=== PATIENT | male | born 1970 | race African-American/Black ===

== ENCOUNTER 2019-06-29 10:15 | Emergency (ER) | payer BC ==
--- NOTE | 2019-06-29 10:38 | RAD REPORT ---
EXAM DESCRIPTION: CT - Ct Stroke Brain Wo Cont - 06/29/2019 10:32 am CLINICAL HISTORY: Headache COMPARISON: None TECHNIQUE: Computed axial tomography of the head was obtained. All CT scans are performed using dose optimization technique as appropriate and may include automated exposure control or mA/KV adjustment according to patient size. FINDINGS: An intracranial bleed is not seen . The ventricles are normal in caliber. No extra-axial fluid collection is noted. Mild low-density areas within the deep white matter are nonspecific but may indicate mild ischemic ch anges secondary to mild small vessel disease Mild opacification the right ethmoid sinus. Mastoids are clear IMPRESSION: No acute intracranial abnormality is seen. If patient's symptoms persist MRI of the bra in would be recommended. Dr Flores of the emergency room was notified at 6:20 p.m. December 17, 2018
[2019-06-29 10:44] LABS: Absolute Lymphocytes (CBC) 1.4 K/uL (0.7-4.9); Basophils % 0.7 % (0-1.3); Hematocrit 43.7 % (39.6-49.0); Lymphocytes % 34.9 % (15.3-44.8); RBC Red Blood Cell Count 5.18 M/uL (4.33-5.43)
[2019-06-29 10:50] LABS: Protime INR 1.03
[2019-06-29 10:56] LABS: Potassium 4.1 mmol/L (3.5-5.1)
[2019-06-29] MEDS ORDERED: KETOROLAC 30 MG/ML INJ ONE (11:06)
[2019-06-29] MEDS ORDERED: DIPHENHYDRAMINE 50 MG/ML VIAL ONE (11:06)
[2019-06-29] MEDS ORDERED: NA CHLORIDE 0.9% 50 ML IV ONE (11:06)
[2019-06-29] MEDS ORDERED: METOCLOPRAMIDE 10 MG/2mL INJ ONE (11:06)
--- NOTE | 2019-06-29 11:14 | RAD REPORT ---
EXAM DESCRIPTION: RAD - Chest Single View - 06/29/2019 11:05 am CLINICAL HISTORY: PAIN Chest pain. COMPARISON: No comparisons FINDINGS: Portable technique limits examination quality. The lungs are grossly clear. The heart is normal in size. No displaced fractures. IMPRESSION: No acute intrathoracic process suspected.
--- NOTE | 2019-06-29 11:49 | RAD REPORT ---
EXAM DESCRIPTION: CT - Head angio - 06/29/2019 11:33 am CLINICAL HISTORY: code stroke Headache, drowsiness, CVA symptomology. COMPARISON: Ct Stroke Brain Wo Cont dated 06/29/2019 TECHNIQUE: CT angiography of the head was performed with MIPs. All CT scans are performed using dose optimization technique as appropriate and may include automated exposure control or mA/KV adjustment according to patient size. FINDINGS: No evidence of aneurysm is detected. No flow-limiting stenosis or vascular malformation id entified. Antegrade flow is seen in the vertebral arteries. The vertebral arteries are codominant. The visualized dural venous sinuses are patent. IMPRESSION: No significant flow abnormality is detected.
--- NOTE | 2019-06-29 14:00 | EKG ---
Test Date: 2019-06-29 Test Time: 10:32:26 Shredded [employer] Machine: JEANIE MEASUREMENT RESULTS: Intervals: Rate: 54 MS: 174 QRSD: 88 QT: 366 QTc: 347 [place]: P: 49 MS: 174 QRS: 92 T: 11 INTERPRETIVE STATEMENTS: Sinus bradycardia Rightward axis Nonspecific T wave abnormality Abnormal ECG No previous ECG available for comparison Electronically Signed On 06-29-19 13:59:04 CDT by Trent Colunga
--- NOTE | 2019-06-29 14:17 | ER ---
Nurse's Notes [facility] Name: Fabiano Kruger Age: 49 yrs Sex: Male : 1970 Arrival Date: 06/29/2019 Time: 10:16 Bed 2 Private MD: Unknown, Unknown Diagnosis: Headache;Migraine without aura;Migraine, unspecified Presentation: 06/29 10:19 Presenting complaint: Sudden onset blurry vision, headache, dizziness, and left arm hb numbness that started at 0845 today. Transition of care: patient was not received from another setting of care. Risk Assessment: Do you want to hurt yourself or someone else? Patient reports no desire to harm self or others. Initial Sepsis Screen: Does the patient meet any 2 criteria? No. Patient's initial sepsis screen is negative. Does the patient have a suspected source of infection? No. Patient's initial sepsis screen is negative. 10:19 Method Of Arrival: Wheelchair hb 10:19 Acuity: MARIBEL 2 hb 10:50 No acute neurological deficit is noted. Pre-hospital glucose is not applicable to this ph patient. Onset of symptoms was June 29, 2019 at 08:45. Care prior to arrival: None. Stroke Activation: Symptom onset < 3 hours Physician: Stroke Attending; Name: ; Notified At: ; Arrived At: Physician: Chief Stroke Resident; Name: ; Notified At: ; Arrived At: Physician: Stroke Resident; Name: ; Notified At: ; Arrived At: Physician: ED Attending; Name: ; Notified At: ; Arrived At: Physician: ED Resident; Name: ; Notified At: ; Arrived At: Historical: - Allergies: 10:22 No Known Allergies; hb - Home Meds: 10:22 losartan 50 mg oral tab [Active]; hb - PMHx: 10:22 heart attack; hb - Immunization history:: Adult Immunizations up to date. - Social history:: Smoking status: Patient/guardian denies using tobacco. - Ebola Screening: : No symptoms or risks identified at this time. Screenin:45 Abuse screen:. Nutritional screening: No deficits noted. Tuberculosis screening: No ph symptoms or risk factors identified. VAN Screening: Arm Drift: Patient shows no arm weakness. Patient is VAN negative. Patient has been NPO before screening. The patient is alert, able to follow commands. The patient does not exhibit slurred or garbled speech The patient is not exhibiting difficulty speaking. The patient does not exhibit difficulty understanding words. The patient is able to swallow own secretions with no drooling or need for suction. Patient tolerated one teaspoon of water. No drooling, immediate coughing, gurgling, or clearing of the throat was noted. The patient tolerated 90mL of water. No drooling, immediate coughing, gurgling, or clearing of the throat was noted. The patient passed the bedside swallow screening. Oral medications may be given as ordered. Contact Physician for further diet orders. Provider notified of bedside swallow screening results: Fabiano Flores MD. Fall Risk None identified. Assessment: 10:20 Reassessment: Patient appears in no apparent distress at this time. Pt taken to CVT via ph wheelchair by RODNEY Vigil. 10:35 Reassessment: Dr Flores at bedside to assess pt, pt reports hx of complex migraines ph that have caused similar symptoms in the past, last migraine 2013. 10:45 VAN Scoring: Arm Drift: Patients demonstrates NO arm weakness. Patient is VAN Negative. ph Patient has been NPO before screening. The patient is alert, and able to follow commands. The patient does not exhibit slurred or garbled speech. The patient is not exhibiting difficulty speaking. The patient does not exhibit difficulty understanding words. The patient is able to swallow own secretions with no drooling or need for suction. Patient tolerated one teaspoon of water. No drooling, immediate coughing, gurgling, or clearing of the throat was noted. The patient passed the bedside swallow screening. Oral medications may be given as ordered. Contact Physician for further diet orders. Provider notified of bedside swallow screening results: Gianna Berg RN. T-PA (Activase) Screening: Contraindications: Rapidly improving condition or minor deficit: Yes. General: Appears in no apparent distress. comfortable, slender, well groomed, Behavior is calm, cooperative, appropriate for age. Pain:. Neuro: Level of Consciousness is awake, alert, obeys commands, Oriented to person, place, time, situation, Clerk Of Court are equal bilaterally Moves all extremities. Full function Gait is steady, Speech is normal, Facial symmetry appears normal, Pupils are PERRLA, Intact Reports blurred vision HOSPICE CONSULTANT, now resolved\E\ dizziness, HOSPICE CONSULTANT, now resolved headache numbness in left arm Denies weakness difficulty swallowing. Cardiovascular: Reports lightheadedness, Denies chest pain, Rhythm is sinus bradycardia. Respiratory: Airway is patent Respiratory effort is even, unlabored, Respiratory pattern is regular, symmetrical. GI: Patient currently denies abdominal pain, nausea, vomiting. Derm: Skin is intact, is healthy with good turgor, Skin is pink, warm \T\ dry. Musculoskeletal: Circulation, motion, and sensation intact. Range of motion:. 12:00 Reassessment: Patient appears in no apparent distress at this time. Patient and/or ph family updated on plan of care and expected duration. Pain level reassessed. Patient is alert, oriented x 3, equal unlabored respirations, skin warm/dry/pink. 13:00 Reassessment: Patient appears in no apparent distress at this time. Patient and/or ph family updated on plan of care and expected duration. Pain level reassessed. Patient is alert, oriented x 3, equal unlabored respirations, skin warm/dry/pink. Pt resting quietly w/ eyes closed, awakens easily, reports that headache is improving, at bedside. 14:00 Reassessment: Patient appears in no apparent distress at this time. Patient and/or ph family updated on plan of care and expected duration. Pain level reassessed. Patient is alert, oriented x 3, equal unlabored respirations, skin warm/dry/pink. Vital Signs: 10:21 BP 160 / 109; Pulse 65; Resp 16; Temp 98.4; Pulse Ox 100% on R/A; Weight 108.86 kg; hb Height 6 ft. 3 in. (190.50 cm); Pain 8/10; 10:40 BP 174 / 105; Pulse 64; Resp 15; Pulse Ox 97% ; jl7 11:55 BP 144 / 99; Pulse 58; Resp 16; Pulse Ox 96% ; jl7 12:35 BP 137 / 96; Pulse 62; Resp 18; Pulse Ox 98% on R/A; ph 13:01 BP 144 / 57; Pulse 64; Resp 15 S; Pulse Ox 99% on R/A; jl7 14:39 BP 109 / 72; Pulse 58; Resp 18; Temp 98.0; Pulse Ox 100% on R/A; ph 10:21 Body Mass Index 30.00 (108.86 kg, 190.50 cm) hb NIH Stroke Scale Scores: 10:35 NIHSS Score: 0 ph 16:37 NIHSS Score: 0 kdr ED Course: 10:16 Patient arrived in ED. as 10:16 Unknown, Unknown is Private Physician. as 10:20 Triage completed. hb 10:22 Arm band placed on. hb 10:25 Gianna Berg RN is Primary Nurse. ph 10:28 Fabiano Flores MD is Attending Physician. kdr 10:32 CT Stroke Brain w/o Contrast In Process Unspecified. EDMS 10:35 Inserted saline lock: 20 gauge in right antecubital area, using aseptic technique. ph 10:37 finger stick glucose 88. mh5 10:38 Patient has correct armband on for positive identification. Placed in gown. Call light mh5 in reach. Side rails up X 1. Adult w/ patient. Warm blanket given. ekg monitor tech on. Pulse ox on. NIBP on. 11:05 Stroke CXR 1 View In Process Unspecified. EDMS 11:34 Head angio In Process Unspecified. EDMS 14:39 No provider procedures requiring assistance completed. IV discontinued, intact, ph bleeding controlled, No redness/swelling at site. Pressure dressing applied. Administered Medications: 11:35 Drug: TORadol - Ketorolac 15 mg Route: IVP; Site: right antecubital; ph 12:30 Follow up: Response: No adverse reaction; Pain is decreased ph 11:35 Drug: Benadryl 25 mg Route: IVP; Site: right antecubital; ph 12:30 Follow up: Response: No adverse reaction ph 12:05 Drug: Reglan 10 mg {Note: mixed in 50 mL NS.} Route: IVP; Site: right antecubital; ph 12:30 Follow up: Response: No adverse reaction ph Point of Care Testing: Blood Glucose: 10:32 Blood Glucose: 88 mg/dL; ph Ranges: Outcome: 14:15 Discharge ordered by . kdr 14:40 Discharged to home ambulatory, with significant other. ph 14:40 Condition: improved 14:40 Discharge instructions given to patient, Instructed on discharge instructions, follow up and referral plans. medication usage, Demonstrated understanding of instructions, follow-up care, medications, Prescriptions given X 2. 14:42 Patient left the ED. ph NIH Stroke Scale - NIH Stroke Score Date: 06/29/2019 Time: 10:35 Total Score = 0 1a. Level of Consciousness (LOC) - 0(Alert) 1b. Level of Consciousness (LOC) (Year \T\ Age) - 0(Both) 1c. LOC Commands (Open \T\ Closes Eyes/Supervisor Brake Repair) - 0(Both) 2. Best Gaze (Lateral Gaze Paresis) - 0(Normal) 3. Visual Field Loss - 0(No visual loss) 4. Facial Palsy - 0(Normal) 5a. Left Arm: Motor (10-second hold) - 0(No drift) 5b. Right Arm: Motor (10-second hold) - 0(No drift) 6a. Left Leg: Motor (5-second hold - always test supine) - 0(No drift) 6b. Right Leg: Motor (5-second hold - always test supine) - 0(No drift) 7. Limb Ataxia (finger/nose \T\ heel/obando - test with eyes open) - 0(Absent) 8. Sensory Loss (pinprick arms/legs/face) - 0(Normal) 9. Best Language: Aphasia (description/naming/reading) - 0(No aphasia) 10. Dysarthria (speech clarity - read or repeat words) - 0(Normal) 11. Extinction and Inattention (visual/tactile/auditory/spatial/personal) - 0(No abnormality) Initials: NIH Stroke Scale - NIH Stroke Score Date: 06/29/2019 Time: 16:37 Total Score = 0 1a. Level of Consciousness (LOC) - 0(Alert) 1b. Level of Consciousness (LOC) (Year \T\ Age) - 0(Both) 1c. LOC Commands (Open \T\ Closes Eyes/Supervisor Brake Repair) - 0(Both) 2. Best Gaze (Lateral Gaze Paresis) - 0(Normal) 3. Visual Field Loss - 0(No visual loss) 4. Facial Palsy - 0(Normal) 5a. Left Arm: Motor (10-second hold) - 0(No drift) 5b. Right Arm: Motor (10-second hold) - 0(No drift) 6a. Left Leg: Motor (5-second hold - always test supine) - 0(No drift) 6b. Right Leg: Motor (5-second hold - always test supine) - 0(No drift) 7. Limb Ataxia (finger/nose \T\ heel/obando - test with eyes open) - 0(Absent) 8. Sensory Loss (pinprick arms/legs/face) - 0(Normal) 9. Best Language: Aphasia (description/naming/reading) - 0(No aphasia) 10. Dysarthria (speech clarity - read or repeat words) - 0(Normal) 11. Extinction and Inattention (visual/tactile/auditory/spatial/personal) - 0(No abnormality) Initials: [facility] Signatures: Dispatcher [employer] EDMS Fabiano Flores MD MD kdr Martinez, Amelia as Hall, Patricia, RN RN Mckenzie Stout, RN RN Clarice Mo [facility] Mansi Clancy, RN RN jl7
--- NOTE | 2019-06-29 14:17 | EDPHYS ---
Physician Documentation [facility] Name: Fabiano Kruger Age: 49 yrs Sex: Male : 1970 Arrival Date: 06/29/2019 Time: 10:16 Bed 2 Private MD: Unknown, Unknown ED Physician Fabiano Flores HPI: 06/29 16:37 This 49 yrs old Black Male presents to ER via Wheelchair with complaints of S/S of kdr Possible Stroke. 16:37 The patient's problem is reported as paresthesias, in left upper extremity, in left kdr side of face, visual difficulty, blurred vision. Onset: The symptoms/episode began/occurred suddenly, this morning. Duration: This was a single incident, The episodes are intermittent, Significantly improved since onset. Context: the episode(s) was witnessed, by no one, symptoms became apparent at 08:45. occurred at work, occurred while the patient was walking, Possible contributing factors include: None known. The symptoms are alleviated by Nothing. The symptoms are aggravated by nothing. Associated signs and symptoms: The patient has no apparent associated signs or symptoms, Pertinent positives: blurred vision, dizziness, headache, Pertinent negatives: abdominal pain, agitation, ataxia. Severity of symptoms: At their worst the symptoms were mild moderate just prior to arrival, in the emergency department the symptoms have improved markedly. Patient's baseline: Neuro: alert and fully oriented, Motor: no deficits, Ambulation: walks without assistance, Speech: normal, The patient has a previous history of Traumatic brain Injury. The patient has experienced similar episodes in the past, It has been a few years since he had similar s/s. The patient has not recently seen a physician. Historical: - Allergies: 10:22 No Known Allergies; hb - Home Meds: 10:22 losartan 50 mg oral tab [Active]; hb - PMHx: 10:22 heart attack; hb - Immunization history:: Adult Immunizations up to date. - Social history:: Smoking status: Patient/guardian denies using tobacco. - Ebola Screening: : No symptoms or risks identified at this time. ROS: 16:37 Constitutional: Negative for fever, chills, and weight loss, Eyes: Negative for injury, kdr pain, redness, and discharge, Neck: Negative for injury, pain, and swelling, Cardiovascular: Negative for chest pain, palpitations, and edema, Respiratory: Negative for shortness of breath, cough, wheezing, and pleuritic chest pain, Abdomen/GI: Negative for abdominal pain, nausea, vomiting, diarrhea, and constipation, Back: Negative for injury and pain, : Negative for injury, bleeding, discharge, and swelling, MS/Extremity: Negative for injury and deformity, Skin: Negative for injury, rash, and discoloration, Psych: Negative for depression, anxiety, suicide ideation, homicidal ideation, and hallucinations, Allergy/Immunology: Negative for hives, rash, and allergies, Endocrine: Negative for neck swelling, polydipsia, polyuria, polyphagia, and marked weight changes, Hematologic/Lymphatic: Negative for swollen nodes, abnormal bleeding, and unusual bruising. 16:37 Neuro: Positive for dizziness, visual changes. Exam: 10:30 Radiologist reports: Negative - [facility] kdr 16:37 Constitutional: This is a well developed, well nourished patient who is awake, alert, kdr and in no acute distress. Head/Face: Normocephalic, atraumatic. Eyes: Pupils equal round and reactive to light, extra-ocular motions intact. Lids and lashes normal. Conjunctiva and sclera are non-icteric and not injected. Cornea within normal limits. Periorbital areas with no swelling, redness, or edema. Neck: Trachea midline, no thyromegaly or masses palpated, and no cervical lymphadenopathy. Supple, full range of motion without nuchal rigidity, or vertebral point tenderness. No Meningismus. Chest/axilla: Normal chest wall appearance and motion. Nontender with no deformity. No lesions are appreciated. Cardiovascular: Regular rate and rhythm with a normal S1 and S2. No gallops, murmurs, or rubs. Normal PMI, no JVD. No pulse deficits. Respiratory: Lungs have equal breath sounds bilaterally, clear to auscultation and percussion. No rales, rhonchi or wheezes noted. No increased work of breathing, no retractions or nasal flaring. Abdomen/GI: Soft, non-tender, with normal bowel sounds. No distension or tympany. No guarding or rebound. No evidence of tenderness throughout. Back: No spinal tenderness. No costovertebral tenderness. Full range of motion. Skin: Warm, dry with normal turgor. Normal color with no rashes, no lesions, and no evidence of cellulitis. MS/ Extremity: Pulses equal, no cyanosis. Neurovascular intact. Full, normal range of motion. Neuro: Awake and alert, GCS 15, oriented to person, place, time, and situation. Cranial nerves II-XII grossly intact. Motor strength 5/5 in all extremities. Sensory grossly intact. Cerebellar exam normal. Normal gait. Psych: Awake, alert, with orientation to person, place and time. Behavior, mood, and affect are within normal limits. Vital Signs: 10:21 BP 160 / 109; Pulse 65; Resp 16; Temp 98.4; Pulse Ox 100% on R/A; Weight 108.86 kg; hb Height 6 ft. 3 in. (190.50 cm); Pain 8/10; 10:40 BP 174 / 105; Pulse 64; Resp 15; Pulse Ox 97% ; jl7 11:55 BP 144 / 99; Pulse 58; Resp 16; Pulse Ox 96% ; jl7 12:35 BP 137 / 96; Pulse 62; Resp 18; Pulse Ox 98% on R/A; ph 13:01 BP 144 / 57; Pulse 64; Resp 15 S; Pulse Ox 99% on R/A; jl7 14:39 BP 109 / 72; Pulse 58; Resp 18; Temp 98.0; Pulse Ox 100% on R/A; ph 10:21 Body Mass Index 30.00 (108.86 kg, 190.50 cm) hb NIH Stroke Scale Scores: 10:35 NIHSS Score: 0 ph 16:37 NIHSS Score: 0 kdr MDM: 10:45 ED course: The patient has had an infrequent migraine history with similar s/s as kdr today. At the time of my eval, the patient symptoms had improved considerably and he was alert and appropriate. 14:15 Patient medically screened. kdr 16:37 Data reviewed: vital signs, nurses notes, lab test result(s), EKG, radiologic studies. kdr 06/29 10:25 Order name: Basic Metabolic Panel; Complete Time: : em1 06/29 10:25 Order name: CBC with Diff; Complete Time: : em1 06/29 10:25 Order name: Protime (+inr); Complete Time: : em1 06/29 10:25 Order name: Ptt, Activated; Complete Time: :52 em1 06/29 10:25 Order name: CT Stroke Brain w/o Contrast; Complete Time: 11:52 em1 06/29 10:49 Order name: Glucose, Ancillary Testing; Complete Time: 11:52 EDMS 06/29 10:25 Order name: Stroke CXR 1 View; Complete Time: 11:52 em1 06/29 10:25 Order name: EKG; Complete Time: 10:27 em06/29 10:25 Order name: Accucheck; Complete Time: 11:22 em1 06/29 10:25 Order name: Cardiac monitoring; Complete Time: 11:22 em1 06/29 10:50 Order name: Head angio; Complete Time: 11:52 EDMS 06/29 10:25 Order name: EKG - Nurse/Tech; Complete Time: 11:22 em06/29 10:25 Order name: IV Saline Lock; Complete Time: 11:22 em06/29 10:25 Order name: Labs collected and sent; Complete Time: 11:22 em1 06/29 10:25 Order name: NPO; Complete Time: 11:21 em06/29 10:25 Order name: O2 Per Protocol; Complete Time: 11:21 06/29 10:25 Order name: O2 Sat Monitoring; Complete Time: 11:21 06/29 10:25 Order name: Stroke Swallow Screen; Complete Time: 11:22 em1 Administered Medications: 11:35 Drug: TORadol - Ketorolac 15 mg Route: IVP; Site: right antecubital; ph 12:30 Follow up: Response: No adverse reaction; Pain is decreased ph 11:35 Drug: Benadryl 25 mg Route: IVP; Site: right antecubital; ph 12:30 Follow up: Response: No adverse reaction ph 12:05 Drug: Reglan 10 mg {Note: mixed in 50 mL NS.} Route: IVP; Site: right antecubital; ph 12:30 Follow up: Response: No adverse reaction ph Point of Care Testing: Blood Glucose: 10:32 Blood Glucose: 88 mg/dL; ph Ranges: Critical Glucose Levels:Adult <50 mg/dl or >400 mg/dl <40 mg/dl or >180 mg/dl Disposition: 06/29/19 14:15 Discharged to Home. Impression: Headache, Migraine without aura, Migraine, unspecified. - Condition is Stable. - Discharge Instructions: General Headache Without Cause, Migraine Headache, [id number]. - Prescriptions for Tramadol 50 mg Oral Tablet - take 1 tablet by ORAL route every 8 hours as needed; 12 tablet. Ibuprofen 600 mg Oral Tablet - take 1 tablet by ORAL route every 6 hours As needed take with food; 12 tablet. - Medication Reconciliation Form, Thank You Letter, Prescription Opioid Use, Work release form form. - Follow up: Private Physician; When: 2 - 3 days; Reason: If symptoms return, Further diagnostic work-up, Recheck today's complaints, Continuance of care, Re-evaluation by your physician. - Problem is new. - Symptoms have improved. NIH Stroke Scale - NIH Stroke Score Date: 06/29/2019 Time: 10:35 Total Score = 0 1a. Level of Consciousness (LOC) - 0(Alert) 1b. Level of Consciousness (LOC) (Year \T\ Age) - 0(Both) 1c. LOC Commands (Open \T\ Closes Eyes/Speech Therapy Assistant) - 0(Both) 2. Best Gaze (Lateral Gaze Paresis) - 0(Normal) 3. Visual Field Loss - 0(No visual loss) 4. Facial Palsy - 0(Normal) 5a. Left Arm: Motor (10-second hold) - 0(No drift) 5b. Right Arm: Motor (10-second hold) - 0(No drift) 6a. Left Leg: Motor (5-second hold - always test supine) - 0(No drift) 6b. Right Leg: Motor (5-second hold - always test supine) - 0(No drift) 7. Limb Ataxia (finger/nose \T\ heel/obando - test with eyes open) - 0(Absent) 8. Sensory Loss (pinprick arms/legs/face) - 0(Normal) 9. Best Language: Aphasia (description/naming/reading) - 0(No aphasia) 10. Dysarthria (speech clarity - read or repeat words) - 0(Normal) 11. Extinction and Inattention (visual/tactile/auditory/spatial/personal) - 0(No abnormality) Initials: NIH Stroke Scale - NIH Stroke Score Date: 06/29/2019 Time: 16:37 Total Score = 0 1a. Level of Consciousness (LOC) - 0(Alert) 1b. Level of Consciousness (LOC) (Year \T\ Age) - 0(Both) 1c. LOC Commands (Open \T\ Closes Eyes/Speech Therapy Assistant) - 0(Both) 2. Best Gaze (Lateral Gaze Paresis) - 0(Normal) 3. Visual Field Loss - 0(No visual loss) 4. Facial Palsy - 0(Normal) 5a. Left Arm: Motor (10-second hold) - 0(No drift) 5b. Right Arm: Motor (10-second hold) - 0(No drift) 6a. Left Leg: Motor (5-second hold - always test supine) - 0(No drift) 6b. Right Leg: Motor (5-second hold - always test supine) - 0(No drift) 7. Limb Ataxia (finger/nose \T\ heel/obando - test with eyes open) - 0(Absent) 8. Sensory Loss (pinprick arms/legs/face) - 0(Normal) 9. Best Language: Aphasia (description/naming/reading) - 0(No aphasia) 10. Dysarthria (speech clarity - read or repeat words) - 0(Normal) 11. Extinction and Inattention (visual/tactile/auditory/spatial/personal) - 0(No abnormality) Initials: kdr Signatures: Dispatcher [employer] EDMS Fabiano Flores MD MD kdr Martinez, Eric Gianna Peña RN RN Mckenzie Stout RN RN Corrections: (The following items were deleted from the chart) 14:42 14:15 06/29/2019 14:15 Discharged to Home. Impression: Headache; Migraine ph without aura; Migraine, unspecified. Condition is Stable. Forms are Medication Reconciliation Form, Thank You Letter, Antibiotic Education, Prescription Opioid Use. Follow up: Private Physician; When: 2 - 3 days; Reason: If symptoms return, Further diagnostic work-up, Recheck today's complaints, Continuance of care, Re-evaluation by your physician. Problem is new. Symptoms have improved. kdr
[2019-06-29 15:05] VITALS: BP 109/72; TEMP 98; O2SAT 100
== END 2019-06-29 14:42 | disposition home or self-care (01) ==
LOC: ER 10:15
DX: G43.009 Migraine without aura, not intractable, without status migrainosus (principal)
CPT/HCPCS: 93005; 85025; 80048; 36415; 85610; 82947; 85730; 70496; 70450; 71045; 96375; 96374; 99284; Q9967; J2765; J1200